=== PATIENT | male | born 1960 | race Caucasian/White ===

== ENCOUNTER 2018-02-24 00:03 | Emergency (ER) | payer MEDICARE, OTHER ==
[~2018-02-24] VITALS: Ht 175.3 cm; Wt 88.6 kg
[2018-02-24 01:07] LABS: BASOPHILS # (AUTO) 0.1 X10'3 (0-0.2); BASOPHILS % (AUTO) 1.1 % (0-1); EOSINOPHILS # (AUTO) 0.2 X10'3 (0-0.9); EOSINOPHILS % (AUTO) 3.2 % (0-6); HEMATOCRIT 48.2 % (42.0-52.0); HEMOGLOBIN 16.8 g/dl (14.0-17.9); LYMPHOCYTES # (AUTO) 1.5 X10'3 (1.1-4.8); MEAN CORPUSCULAR HEMOGLOBIN 33.1 PG (27.0-31.0); MEAN CORPUSCULAR HGB CONC 34.7 % (33.0-36.5); MEAN CORPUSCULAR VOLUME 95.4 FL (78-98); MONOCYTES # (AUTO) 0.6 X10'3 (0-0.9); MONOCYTES % (AUTO) 11.3 % (2-12); NEUTROPHILS # (AUTO) 3.1 X10'3 (1.8-7.7); NEUTROPHILS % (AUTO) 56.4 % (42-75); PLATELET COUNT 176 X10'3 (140-440); RED BLOOD COUNT 5.06 X10'6 (4.70-6.10); RED CELL DISTRIBUTION WIDTH 11.7 % (11.5-14.5); WHITE BLOOD COUNT 5.5 X10'3 (4.5-11.0)
[2018-02-24 01:21] LABS: ALANINE AMINOTRANSFERASE 56 U/L (12-78); ALBUMIN 3.9 G/DL (3.4-5.0); ALBUMIN/GLOBULIN RATIO 1.2 (1.1-1.5); ALKALINE PHOSPHATASE 97 IU/L (46-116); ANION GAP 7 (8-16); ASPARTATE AMINO TRANSFERASE 27 U/L (10-37); BILIRUBIN,TOTAL 0.6 MG/DL (0.1-1.0); BLOOD UREA NITROGEN 13 MG/DL (7-18); BUN/CREATININE RATIO 14.1 (5.4-32.0); CALCIUM 9.4 MG/DL (8.5-10.1); CHLORIDE 98 MMOL/L (99-107); CREATININE 0.92 MG/DL (0.60-1.10); GLUCOSE 306 MG/DL (70-104); SODIUM 135 MMOL/L (135-145); TOTAL PROTEIN 7.1 G/DL (6.4-8.2); eGFR 85 ML/MIN
[2018-02-24 01:31] LABS: ETHANOL < 0.010 GM/DL (0.0-0.010)
[2018-02-24] MEDS ORDERED: LORazepam 1 MG tablet PO ONE ×3 (01:35→15:45)
[2018-02-24 02:22] LABS: CLARITY,URINE CLEAR (Clear); COLOR,URINE YELLOW (Yellow); GLUCOSE, URINE >=1000 mg/dl (Neg); KETONES,URINE NEGATIVE (Neg); LEUKOCYTE ESTERASE ,URINE NEGATIVE (Neg); NITRITES, URINE NEGATIVE (Neg); OCCULT BLOOD,URINE NEGATIVE (Neg); PROTEIN,URINE NEGATIVE (Neg); UROBILINOGEN,URINE 0.2 E.U/dL (0.2-1.0)
[2018-02-24 02:26] LABS: UA COLLECTION TYPE CLN CATCH MIDSTREAM
[2018-02-24 02:31] LABS: BACTERIA,URINE FEW /HPF (Neg); RBC,URINE 0-2 /HPF (0-2); SQUAMOUS EPITHELIAL CELL,UR FEW /LPF (FEW); WBC,URINE 0-4 /HPF (0-4)
[2018-02-24 02:34] LABS: URINE AMPHETAMINE SCREEN NEGATIVE (Neg); URINE BARBITUATE SCREEN NEGATIVE (Neg); URINE BENZODIAZEPINES SCREEN NEGATIVE (Neg); URINE CANNABINOID SCREEN NEGATIVE (Neg); URINE COCAINE SCREEN NEGATIVE (Neg); URINE METHADONE SCREEN NEGATIVE (Neg); URINE OPIATE SCREEN NEGATIVE (Neg); URINE PHENCYCLIDINE SCREEN NEGATIVE (Neg)
[2018-02-24] MEDS ORDERED: citalopram 20mg tablet PO SCH ×2 (03:26→21:00)
[2018-02-24] MEDS ORDERED: SITA50TA PO (03:37)
[2018-02-24] MEDS ORDERED: diphenhydrAMINE 25mg capsule PO ONE (15:45)
[2018-02-25] MEDS ORDERED: MULT-38 PO (11:20)
[2018-02-25 12:37] VITALS: BP 96/59
[2018-02-25] MEDS ORDERED: CITA-278 PO (12:50)
[2018-02-26] MEDS ORDERED: OLAN5TAB3 PO (15:02)
[2018-02-26] MEDS ORDERED: CITA-278 PO (15:02)
[2018-02-26] MEDS ORDERED: CLON0.1T PO (15:02)
== END 2018-02-25 12:48 ==
LOC: EDBD 00:04 → EEVIPCON 00:04 → ER 00:04
DX: F32.9 Major depressive disorder, single episode, unspecified (principal); R45.851 Suicidal ideations; E78.00 Pure hypercholesterolemia, unspecified; E11.9 Type 2 diabetes mellitus without complications; G89.29 Other chronic pain; Z98.890 Other specified postprocedural states; Z88.1 Allergy status to other antibiotic agents; Z88.8 Allergy status to other drugs, medicaments and biological substances; Z79.899 Other long term (current) drug therapy
CPT/HCPCS: 36415; 73130; 80053; 80305; 80320; 81001; 82948; 84443; 85025; 99285; Q0163

== ENCOUNTER 2018-02-25 07:20 | Inpatient (IN) | payer MEDICARE, OTHER ==
[~2018-02-25] VITALS: Ht 175.3 cm; Wt 86.9 kg
[~2018-02-25 07:20] MED LIST: SITA50TA PO
[2018-02-25] MEDS ORDERED: tuberculin, purif. prot. deriv. 5 units/0.1ml ID ONE (09:30)
[2018-02-25] MEDS ORDERED: acetaminophen 325mg tablet PO PRN ×2 (09:30)
[2018-02-25] MEDS ORDERED: magnesium hydroxide 30ml (MOM) UD suspension PO PRN (09:30)
[2018-02-25] MEDS ORDERED: mag hydrox/Alum hydrox/simeth 30ml oral suspension PO PRN (09:30)
[2018-02-25] MEDS ORDERED: MULT-38 PO (11:20)
[2018-02-25] MEDS ORDERED: CITA-278 PO (12:50)
[2018-02-25 13:08] VITALS: BP 106/65
[2018-02-25 19:00] VITALS: BP 110/69
[2018-02-25] MEDS ORDERED: citalopram 20mg tablet PO SCH (21:00)
[2018-02-26] MEDS ORDERED: multivitamins, therapeutics tablet PO SCH (08:00)
[2018-02-26] MEDS ORDERED: JANUVIA 100 MG PO SCH (08:00)
[2018-02-26] MEDS ORDERED: linagliptin 5mg tablet PO SCH (08:00)
[2018-02-26 08:43] VITALS: BP 102/77
[2018-02-26 08:44] LABS: HEMOGLOBIN A1C 9.6 % (4.5-6.2)
[2018-02-26 08:46] LABS: CHOL/HDL RATIO 7.6 (0.00-4.99); CHOLESTEROL 244 MG/DL (0-200); HDL CHOLESTEROL 32 MG/DL (35-60); LDL CHOLESTEROL 186 MG/DL (50-100); TRIGLYCERIDES 169 MG/DL (20-135)
[2018-02-26] MEDS ORDERED: CLON0.1T PO (15:02)
[2018-02-26] MEDS ORDERED: CITA-278 PO (15:02)
[2018-02-26] MEDS ORDERED: OLAN5TAB3 PO (15:02)
== END 2018-02-26 15:37 | disposition home or self-care (01) | DRG 885 ==
LOC: ADULT MH 07:20
PROVIDERS: ADMIT Psychiatry & Neurology Psychiatry; ATTEND Psychiatry & Neurology Psychiatry
DX: F33.2 Major depressive disorder, recurrent severe without psychotic features (principal); R45.851 Suicidal ideations; E11.9 Type 2 diabetes mellitus without complications; F43.12 Post-traumatic stress disorder, chronic; I10 Essential (primary) hypertension; F41.9 Anxiety disorder, unspecified; Z98.1 Arthrodesis status; Z79.899 Other long term (current) drug therapy; Z88.1 Allergy status to other antibiotic agents; Z88.8 Allergy status to other drugs, medicaments and biological substances
CPT/HCPCS: 36415; 80061; 82948; 83036; 87070